=== PATIENT | female | born 1990 | race Caucasian/White ===

== ENCOUNTER 2022-12-21 21:48 | Emergency (ER) | payer OTHER ==
[~2022-12-21] VITALS: Ht 144.8 cm; Wt 50.1 kg
[2022-12-21 22:52] LABS: APPEARANCE, URINE CLEAR (CLEAR); BACTERIA, URINE AUTO NEGATIVE (NEGATIVE); BILIRUBIN, URINE AUTO NEGATIVE (NEGATIVE); BLOOD, URINE BLOOD 1+ (NEGATIVE); COLOR, URINE STRAW (YELLOW); GLUCOSE, URINE (UA) AUTO NEGATIVE (NEGATIVE); KETONE, URINE AUTO NEGATIVE (NEGATIVE); LEUKOCYTE ESTERASE, URINE AUTO NEGATIVE (NEGATIVE); NITRITE, URINE AUTO NEGATIVE (NEGATIVE); PROTEIN, URINE AUTO NEGATIVE (NEGATIVE); RBC, URINE AUTO 1 /HPF (0-3); SPECIFIC GRAVITY URINE AUTO 1.004 (1.002-1.035); SQUAMOUS EPITHELIAL CELL UR AU 0 /HPF (0-6); UROBILINOGEN, URINE AUTO 0.2 mg/dL (0.0-2.0); WBC, URINE AUTO 1 /HPF (0-3)
[2022-12-22 04:26] LABS: HCG, SERUM QUALITATIVE NEGATIVE (NEGATIVE)
[2022-12-22 06:20] LABS: BASO # 0.1 10^3/uL (0.0-0.2); BASO % 0.8 % (0.0-1.0); EOS # 0.2 10^3/uL (0.0-0.5); EOS % 2.3 % (0.0-3.0); HEMATOCRIT 34.4 % (36.0-47.0); LYMPH # 2.4 10^3/uL (1.5-5.0); LYMPH % 36.5 % (24.0-44.0); MEAN CORPUSCULAR HEMOGLOBIN 25.7 pg (27.0-33.0); MEAN CORPUSCULAR VOLUME 80.4 fl (80.0-96.0); MONO # 0.6 10^3/uL (0.0-0.8); MONO % 9.3 % (2.0-8.0); NEUTROPHILS # 3.3 10^3/uL (1.5-8.5); NEUTROPHILS % 50.9 % (36.0-66.0); PLATELET COUNT, AUTOMATED 220 10^3/uL (150-450); RED BLOOD COUNT 4.28 10^6/uL (4.00-5.40); WHITE BLOOD COUNT 6.5 10^3/uL (4.0-10.0)
[2022-12-22] MEDS ORDERED: NS 1,000 ML IV ONE (07:35)
[2022-12-22] MEDS ORDERED: KETOROLAC 30 MG/ML 1ML VIAL IV ONE (07:35)
[2022-12-22] MEDS ORDERED: METOCLOPRAMIDE INJ 10MG/2ML VIAL IV ONE (07:35)
[2022-12-22 09:32] LABS: BASO # 0.1 10^3/uL (0.0-0.2); BASO % 1.1 % (0.0-1.0); EOS # 0.1 10^3/uL (0.0-0.5); EOS % 2.8 % (0.0-3.0); HEMATOCRIT 29.9 % (36.0-47.0); HEMOGLOBIN 9.5 g/dl (12.0-15.5); LYMPH # 1.8 10^3/uL (1.5-5.0); LYMPH % 39.1 % (24.0-44.0); MEAN CORPUSCULAR HEMOGLOBIN 25.3 pg (27.0-33.0); MEAN CORPUSCULAR HGB CONC 31.8 g/dl (32.0-36.5); MEAN CORPUSCULAR VOLUME 79.7 fl (80.0-96.0); MONO # 0.5 10^3/uL (0.0-0.8); MONO % 9.9 % (2.0-8.0); NEUTROPHILS # 2.2 10^3/uL (1.5-8.5); NEUTROPHILS % 46.9 % (36.0-66.0); PLATELET COUNT, AUTOMATED 200 10^3/uL (150-450); RED BLOOD COUNT 3.75 10^6/uL (4.00-5.40); WHITE BLOOD COUNT 4.6 10^3/uL (4.0-10.0)
[2022-12-22 10:07] LABS: GC DNA AMPLIFICATION NEGATIVE (NEGATIVE)
[2022-12-22 11:23] VITALS: BP 98/55
== END 2022-12-22 11:35 | disposition home or self-care (01) ==
LOC: M ED 21:48
DX: N92.0 Excessive and frequent menstruation with regular cycle (principal); F41.9 Anxiety disorder, unspecified; Z88.5 Allergy status to narcotic agent
CPT/HCPCS: 36415; 76856; 81001; 84703; 85025; 86850; 86900; 86901; 87210; 87661; 87810; 87850; 93976; 96361; 96374; 96375; 99284; J1885; J2765

== ENCOUNTER 2023-05-05 00:32 | Emergency (ER) | payer OTHER ==
[~2023-05-05] VITALS: Ht 147.3 cm; Wt 51.5 kg
[2023-05-05 01:04] VITALS: BP 116/73; TEMP 97.3; O2SAT 98
[2023-05-05] MEDS ORDERED: BIOT1CAP2 PO (01:08)
[2023-05-05] MEDS ORDERED: CIPRHCOTIC OTIC (01:38)
[2023-05-05] MEDS ORDERED: CIPROFLOXACIN HC OTIC SUSPENSION AS ONE (01:40)
== END 2023-05-05 01:49 | disposition home or self-care (01) ==
LOC: M ED 00:32
DX: S09.91XA Unspecified injury of ear, initial encounter (principal); H92.22 Otorrhagia, left ear; Z88.5 Allergy status to narcotic agent; Z79.899 Other long term (current) drug therapy

== ENCOUNTER 2024-06-01 05:43 | Emergency (ER) | payer OTHER ==
[~2024-06-01] VITALS: Ht 144.8 cm; Wt 57.0 kg
[~2024-06-01 05:43] MED LIST: BIOT1CAP2 PO; CIPRHCOTIC OTIC
[2024-06-01 06:35] LABS: APPEARANCE, URINE HAZY (CLEAR); BACTERIA, URINE AUTO NEGATIVE (NEGATIVE); BILIRUBIN, URINE AUTO NEGATIVE (NEGATIVE); BLOOD, URINE BLOOD 1+ (NEGATIVE); COLOR, URINE YELLOW (YELLOW); GLUCOSE, URINE (UA) AUTO NEGATIVE (NEGATIVE); KETONE, URINE AUTO NEGATIVE (NEGATIVE); LEUKOCYTE ESTERASE, URINE AUTO NEGATIVE (NEGATIVE); MUCUS, URINE SMALL (NEGATIVE); NITRITE, URINE AUTO NEGATIVE (NEGATIVE); PROTEIN, URINE AUTO NEGATIVE (NEGATIVE); RBC, URINE AUTO 1 /HPF (0-3); SPECIFIC GRAVITY URINE AUTO 1.012 (1.002-1.035); SQUAMOUS EPITHELIAL CELL UR AU 10 /HPF (0-6); UROBILINOGEN, URINE AUTO 0.2 mg/dL (0.0-2.0); WBC, URINE AUTO 2 /HPF (0-3)
[2024-06-01] MEDS ORDERED: [UNRECOGNIZED DRUG - CODE] PO (07:08)
[2024-06-01 07:29] LABS: BASO # 0.1 10^3/uL (0.0-0.2); BASO % 0.8 % (0.0-1.0); EOS # 0.1 10^3/uL (0.0-0.5); EOS % 0.9 % (0.0-3.0); HEMATOCRIT 35.9 % (36.0-47.0); HEMOGLOBIN 11.5 g/dl (12.0-15.5); LYMPH # 1.3 10^3/uL (1.5-5.0); LYMPH % 15.8 % (24.0-44.0); MEAN CORPUSCULAR HEMOGLOBIN 24.2 pg (27.0-33.0); MEAN CORPUSCULAR VOLUME 75.4 fl (80.0-96.0); MONO # 0.6 10^3/uL (0.0-0.8); MONO % 7.6 % (2.0-8.0); NEUTROPHILS # 6.3 10^3/uL (1.5-8.5); NEUTROPHILS % 74.7 % (36.0-66.0); PLATELET COUNT, AUTOMATED 243 10^3/uL (150-450); RED BLOOD COUNT 4.76 10^6/uL (4.00-5.40); WHITE BLOOD COUNT 8.5 10^3/uL (4.0-10.0)
[2024-06-01] MEDS: KETOROLAC 30 MG/ML 1ML VIAL IV ONE (07:45)
[2024-06-01] MEDS: NS 1,000 ML IV ONE (07:45)
[2024-06-01] MEDS: ONDANSETRON 4MG 2ML VIAL IV ONE (07:46)
[2024-06-01 07:55] LABS: LIPASE 29 U/L (12-53)
[2024-06-01 07:57] LABS: ALBUMIN 4.3 G/DL (3.2-5.2); ALKALINE PHOSPHATASE 86 U/L (46-116); ALT/SGPT 19 U/L (7.0-40); AST/SGOT 15 U/L (<34); BILIRUBIN,DIRECT 0.1 MG/DL (<0.4); BILIRUBIN,TOTAL 0.5 MG/DL (0.3-1.2); BLOOD UREA NITROGEN 10 MG/DL (9-23); CARBON DIOXIDE LEVEL 29 MMOL/L (20-31); CHLORIDE LEVEL 103 MMOL/L (98-107); GLOMERULAR FILTRATION RATE > 60.0 (>60); GLUCOSE, FASTING 100 MG/DL (60-100); POTASSIUM SERUM 3.5 MMOL/L (3.5-5.1); SODIUM LEVEL 138 MMOL/L (136-145); TOTAL PROTEIN 7.3 G/DL (5.7-8.2)
[2024-06-01 08:02] LABS: HCG, SERUM QUALITATIVE NEGATIVE (NEGATIVE)
[2024-06-01] MEDS ORDERED: ISOVUE-370 76% 100ML VIAL As Ordered ONE (09:01)
[2024-06-01] MEDS: ACETAMINOPHEN 500 MG TAB PO ONE (11:05)
[2024-06-01] MEDS ORDERED: ONDA-282 PO (11:20)
[2024-06-01 11:38] VITALS: BP 130/74; TEMP 98; O2SAT 100
== END 2024-06-01 11:41 | disposition home or self-care (01) ==
LOC: M ED 05:43
DX: N83.291 Other ovarian cyst, right side (principal); R19.7 Diarrhea, unspecified; R10.31 Right lower quadrant pain; F41.9 Anxiety disorder, unspecified; F17.210 Nicotine dependence, cigarettes, uncomplicated; Z88.8 Allergy status to other drugs, medicaments and biological substances; Z79.2 Long term (current) use of antibiotics
CPT/HCPCS: 74177; 76830; 76856; 80048; 80076; 81001; 83605; 83690; 84703; 85025; 87507; 93976; 96361; 96374; 96375; 99284; J1885; J2405; Q9967